=== PATIENT | female | born 1950 | race Caucasian/White ===

== ENCOUNTER 2017-07-15 13:44 | Emergency (ER) | payer OTHER ==
[~2017-07-15] VITALS: Ht 160 cm; Wt 60.8 kg
[~2017-07-15 13:44] MED LIST: ALBUTEROL2.5 MG/3 M IH; AMLODIPINE-OLM1 EAC1 PO; CELEBREX100 MG PO; CIPRO500 MG PO; FUROSEMIDE20 MG; GLIMEPIRIDE4 MG; GLIMEPIRIDE4 MG PO; HYZAAR 100-251 UDTAB; LEVO-T200 MCG PO; LEVSIN/SL0.125 MG SL; METFORMIN HCL1000 M1; MOTRIN600 MG PO; PANCREASE PO; PREDNISONE5 MG/DOSE- PO; SYNTHROID300 MCG; Synthroid 100MCG TABLET PO; ULTRAM50 MG PO; VISTARIL50 MG PO; ZOVIRAX800 M1 PO
== END 2017-07-15 19:21 | disposition home or self-care (01) ==
LOC: ER 13:44
DX: E13.649 Other specified diabetes mellitus with hypoglycemia without coma (principal)

== ENCOUNTER 2018-05-05 13:43 | Emergency (ER) | payer OTHER ==
[~2018-05-05] VITALS: Ht 154.9 cm; Wt 82.1 kg
[2018-05-05] MEDS ORDERED: TORADOL60 MG IM (15:48)
== END 2018-05-05 15:51 | disposition home or self-care (01) ==
LOC: ER 13:43
DX: M79.632 Pain in left forearm (principal)

== ENCOUNTER 2018-09-30 13:42 | Emergency (ER) | payer OTHER ==
[~2018-09-30] VITALS: Ht 144.8 cm; Wt 84.4 kg
[~2018-09-30 13:42] MED LIST changes: +TORADOL60 MG IM
[2018-09-30] MEDS ORDERED: LASIX20 MG (14:29)
[2018-09-30] MEDS ORDERED: RANITIDINE HCL300 MG (14:29)
[2018-09-30] MEDS ORDERED: SYNTHROID200 MCG (14:30)
== END 2018-09-30 18:00 | disposition home or self-care (01) ==
LOC: ER 13:42
DX: S13.4XXA Sprain of ligaments of cervical spine, initial encounter (principal); M62.838 Other muscle spasm; X50.0XXA Overexertion from strenuous movement or load, initial encounter; Y93.89 Activity, other specified; Y92.89 Other specified places as the place of occurrence of the external cause; Y99.8 Other external cause status

== ENCOUNTER 2018-12-08 08:40 | Outpatient (CLI) | payer OTHER ==
[~2018-12-08 08:40] MED LIST changes: +LASIX20 MG; +RANITIDINE HCL300 MG; +SYNTHROID200 MCG
== END 2018-12-08 08:41 | disposition home or self-care (01) ==
LOC: SONOGRAMA 08:40
DX: E04.8 Other specified nontoxic goiter (principal)

== ENCOUNTER 2019-05-19 13:54 | Emergency (ER) | payer OTHER ==
[~2019-05-19] VITALS: Ht 160 cm; Wt 77.1 kg
[2019-05-19] MEDS ORDERED: LOTREL 10-20 M1 EACH (14:17)
[2019-05-19] MEDS ORDERED: FORTAMET500 MG (14:17)
[2019-05-19] MEDS ORDERED: LIPITOR20 MG (14:18)
[2019-05-19] MEDS ORDERED: GLIMEPIRIDE4 MG (14:18)
[2019-05-19] MEDS ORDERED: LEVOTHYROXINE25 MCG PO (14:19)
[2019-05-19] MEDS ORDERED: HYZAAR 100-251 EACH (14:19)
== END 2019-05-19 19:19 | disposition home or self-care (01) ==
LOC: ER 13:54
DX: R42 Dizziness and giddiness (principal)

== ENCOUNTER 2019-06-09 08:40 | Emergency (ER) | payer OTHER ==
[~2019-06-09] VITALS: Ht 154.9 cm; Wt 86.6 kg
[~2019-06-09 08:40] MED LIST changes: +FORTAMET500 MG; +HYZAAR 100-251 EACH; +LEVOTHYROXINE25 MCG PO; +LIPITOR20 MG; +LOTREL 10-20 M1 EACH
== END 2019-06-09 10:06 | disposition home or self-care (01) ==
LOC: ER 08:40
DX: M25.552 Pain in left hip (principal)

== ENCOUNTER 2019-08-27 09:20 | Emergency (ER) | payer OTHER ==
[~2019-08-27] VITALS: Ht 149.9 cm; Wt 81.6 kg
== END 2019-08-27 10:49 | disposition home or self-care (01) ==
LOC: ER 09:20
DX: M54.5 Low back pain (principal)

== ENCOUNTER 2019-08-30 10:51 | Emergency (ER) | payer OTHER ==
[~2019-08-30] VITALS: Ht 154.9 cm; Wt 86.2 kg
== END 2019-08-30 12:29 | disposition home or self-care (01) ==
LOC: ER 10:51
DX: E16.1 Other hypoglycemia (principal); R53.1 Weakness

== ENCOUNTER 2019-09-01 09:03 | Emergency (ER) | payer OTHER ==
[~2019-09-01] VITALS: Ht 149.9 cm; Wt 80.7 kg
[2019-09-01] MEDS ORDERED: FORTAMET500 MG (09:19)
[2019-09-01] MEDS ORDERED: LASIX20 MG (09:20)
== END 2019-09-01 14:11 | disposition home or self-care (01) ==
LOC: ER 09:03
DX: E11.649 Type 2 diabetes mellitus with hypoglycemia without coma (principal); E86.0 Dehydration; N39.0 Urinary tract infection, site not specified; Z79.84 Long term (current) use of oral hypoglycemic drugs; E87.8 Other disorders of electrolyte and fluid balance, not elsewhere classified

== ENCOUNTER 2020-10-20 09:11 | Outpatient (CLI) | payer OTHER | END 2020-10-20 09:21 | disposition home or self-care (01) | LOC: EDBD 09:11 → RAD 09:11 | PROVIDERS: ATTEND Ophthalmology | DX: I70.0 Atherosclerosis of aorta (principal); I10 Essential (primary) hypertension ==